=== PATIENT | male | born 2000 | race Caucasian/White ===

== ENCOUNTER 2020-08-07 11:48 | Emergency (ER) | payer SELFPAY ==
[2020-08-07 12:19] VITALS: BP 126/78; PULSE 63; RESP 14; TEMP 36.7; O2SAT 100; BMI 17.9
--- NOTE | 2020-08-07 12:51 | HMH.EDUTC ---
[facility] [place] Clinical Impression: Exposure to COVID-19 virus Disposition: Home, Self-Care Condition on Discharge: Good Instructions: Preventing the Spread of Coronavirus Discharge Instructions Additional Instructions: Drink plenty of fluids. Take tylenol for pain or fever. Follow up with your regular doctor. GO TO THE ER FOR ANY WORSENING SYMPTOMS Referrals: PCP,No [Primary Care Provider] - Time of Disposition: 12:52 Medical Decision Making - Medical Records Medical records reviewed: No: I reviewed the patient's medical records. - Mike Inquiry Pt receiving controlled substance: No Vital Signs: 08/07/20 12:19 08/07/20 13:28 Temperature 98.1 F 98.1 F Temperature Source Oral Oral Pulse Rate 63 Pulse Rate [Radial] 63 Respiratory Rate 14 14 Blood Pressure 126/78 Blood Pressure [Right Arm] 126/78 Blood Pressure Mean [Right Arm] 94 Blood Pressure Source Automatic Cuff Blood Pressure Source [Right Arm] Automatic Cuff Blood Pressure Position Sitting Blood Pressure Position [Right Arm] Sitting 02 Sat by Pulse Oximetry 100 Oxygen Delivery Method Room Air Room Air Orders (Tests/Meds): ORDERS Category Date Time Status Covid-19 Nasal PCR Sendout [facility] Routine Lab 08/07/20 12:00 Received [facility] [place] - General Stated complaint: Covid test Time Seen by Provider: 08/07/20 12:51 Mode of Arrival: Ambulatory Source of Information: Patient Limitations: No Limitations Description of Symptoms (Recalled from Triage Doc. by RN): exposed to covid HEENT Symptoms (Recalled from RN notes): No Resp Symptoms (Recalled from RN notes): No Skin Symptoms (Recalled from RN notes): No MS Symptoms (Recalled from RN notes): No Functional Status (Recalled from RN notes): wnl - History of Present Illness Provider Complaint: He was exposed to covid by his uncle. He denies any symptoms. - Related Data Allergies Allergy/AdvReac Type Severity Reaction Status Date / Time SULFA (SULFONAMIDE) Allergy Intermediate I-RASH Uncoded 09/12/17 15:05 - Worker's Comp Is this a Worker's Comp case?: No [facility] History - Hepatitis A Screen Drug use history?: No High risk sexual behaviors?: No History of sexually transmitted infection?: No Currently employed?: No Childcare worker?: No Do you have indoor plumbing?: Yes Do you have electricity?: Yes Attestation statement:: This patient has been screened for Hepatitis A risk factors. I have reviewed the patient's past medical history: Yes - Social History Smoking Status: Current every day smoker Tobacco Type: cigarettes # Packs/Day (cigarettes): 1 Alcohol Intake: never Occupational Status: other Housing: house ROS Obtained: Yes All systems reviewed & no additional complaints - Constitutional Constitutional: Reports system reviewed and no additional complaints, except as docu - Eyes Eyes: Reports system reviewed and no additional complaints, except as docu - ENT Ears, Nose, Mouth, and Throat: Reports system reviewed and no additional complaints, except as docu - Cardiovascular Cardiovascular: Reports system reviewed and no additional complaints, except as docu - Respiratory Respiratory: Yes system reviewed and no additional complaints, except as docu - Gastrointestinal Gastrointestingal: Reports: system reviewed and no additional complaints, except as docu Physical Exam - General General appearance: alert, in no apparent distress - Head Head exam: atraumatic, normocephalic, normal inspection - Eye Eye exam: Present: normal appearance, PERRL, EOMI - ENT ENT exam: Present: normal exam, normal oropharynx, mucous membranes moist, TM's normal bilaterally, normal external ear exam - Neck Neck exam: Present: normal inspection, full ROM, trachea midline. Absent: meningismus, lymphadenopathy - Chest Chest inspection: Present: normal inspection, symmetric chest wall rise. Absent: tenderness - Respiratory Respiratory exam: Pre
[2020-08-07 13:28] VITALS: BP 126/78; PULSE 63; RESP 14; TEMP 36.7; O2SAT 100
[2020-08-08 14:14] LABS: Covid-19 Nasal PCR Sendout Lex NOT DETECTED
== END 2020-08-07 13:28 | disposition home or self-care (01) ==
PROVIDERS: Emergency Provider Nurse Practitioner Family
DX: Z20.828 Contact with and (suspected) exposure to other viral communicable diseases (principal); F17.210 Nicotine dependence, cigarettes, uncomplicated; Z88.2 Allergy status to sulfonamides
CPT/HCPCS: 99201; U0004